=== PATIENT | female | born 1980 | race African-American/Black ===

== ENCOUNTER 2019-09-05 01:03 | Day surgery (SDC) | payer OTHER, SELFPAY ==
[2019-08-23 14:37] VITALS: BMI 38.0
--- NOTE | 2019-09-04 17:05 | PM.SD ---
Same Day Admit/Disch: HPI History of Present Illness Chief complaint: ventral hernia Narrative: Yuan Gatica is a 39 year old female who noticed a painful bulge in the upper mid abdomen. It has been there quite some time but at her initial office visit I was not really able to palpate this. She underwent abdominal ultrasound and a ventral hernia was seen. This is located about 7 cm cephalad of the umbilicus. At her return office visit in June, I was able to palpate the hernia. After discussion, she is taken to surgery now for ventral hernia repair possibly with mesh. [facility] Past Medical History Medical History Obesity Surgical History Surgical History Hx of removal of cyst left wrist Family History Family History Mother Hypertension Family history of malignant neoplasm of uterus Social History Social History Smoking status: Never smoker Second hand tobacco smoke exposure: No Alcohol intake: current Same Day Admit/Disch: Med Pre-admit Medications Home Medications Medication Instructions Recorded Confirmed Type norgestimate 0.25 mg-ethinyl 1 tablet PO DAILY 06/21/19 09/05/19 History estradiol 35 mcg tablet multivitamin 1 tablet PO DAILY 08/23/19 09/05/19 History hydrocodone-acetaminophen 1 - 2 tablet PO Q6H PRN #7 tablet 09/05/19 Rx ketorolac 10 mg PO Q6H 4 Days #16 tablet 09/05/19 Rx Exam Const: General: comfortable, no acute distress, alert and awake HENMT: Head: normocephalic and atraumatic Mouth: Yes Normal oral and palatal mucosa present Eyes: Conjunctivae: conjunctivae normal Pupils: Equal, round and reactive pupils present EOM: EOMs intact bilaterally Neck: Neck: normal visual inspection, no lymphadenopathy and nontender Resp: Effort & Inspection: normal respiratory effort Auscultation: clear to auscultation bilaterally Cardio: Rate: regular rate Rhythm: regular rhythm Heart sounds: no gallops, no murmurs and no rubs GI: Inspection: normal to inspection, non-distended and obesity GI Palp: Yes Soft to palpation, No Tenderness to palpation present (GI), No Hepatomegaly present, No Splenomegaly present and Yes Hernia present (Midline ventral hernia about 7 cm above umbilicus) Auscultation: normal bowel sounds Skin: Lesions: no lesions Rashes: no rashes Neuro: General: no focal motor deficits and CN's II-XI intact bilaterally Cranial nerves: Yes Equal, round and reactive pupils present, Yes Bilaterally intact EOM present, Yes facial symmetry and Yes Midline tongue present Speech: normal speech Motor exam (neuro): 5/5 motor strength present throughout and Motor abnormalities not present Extrem: General: no clubbing, cyanosis or edema and edema Psych: Affect: normal affect Thought process: Normal thought process present Insight: Good insight present (Psych) DS: Summary Time Spent with Patient Time attestation: Total time spent providing and/or coordinating discharge services: DS: Diagnosis Discharge Diagnosis (1) Ventral hernia without obstruction or gangrene: Code(s): K43.9 - Ventral hernia without obstruction or gangrene Status: Chronic Assessment and Plan: I have recommended we proceed with repair of this ventral hernia possibly with underlay mesh. The procedure the risks the benefits have been discussed. The usual time of recovery has been discussed. All questions were answered. The patient understands and wishes to proceed. Discharge Plan Discharge Patient Disposition: Home, Self-Care Discharge Instructions: 1. May shower the day after surgery over incision. 2. Call office for: -Wound increasingly painful or bleeding -Vomiting -Fever of greater than 101 degrees 3. Expect some blood on dressing or on skin.
[2019-09-05] MEDS: LACTATED RINGERS 1,000 ML 30 ML IV CONT ×2 (07:15→09:59)
[2019-09-05 07:18] VITALS: BP 125/84; PULSE 82; TEMP 36.6; O2SAT 99
--- NOTE | 2019-09-05 07:48 | WPDANESEPPF ---
Anes - Initial Pre Proc Eval Procedure: Operation Date: 09/05/19 08:30 Proposed Procedures p Ventral Hernia Repair, Possible Mesh - Peng Louis MD Date/Time: 09/05/19 07:48 Surgeon: Peng Louis MD Pre Op Diagnosis: ventral hernia Patient Data Age: 39 Gender: F Height: 1.52 m Weight: 88.2 kg Last Vital Signs Temp 36.6 C 09/05/19 07:18 Pulse 82 09/05/19 07:18 BP 125/84 09/05/19 07:18 Pulse Ox 99 09/05/19 07:18 Allergies Allergy/AdvReac Type Severity Reaction Status Date / Time No Known Allergies Allergy Verified 08/23/19 14:37 Home Medications Medication Instructions Recorded Confirmed Type norgestimate 0.25 mg-ethinyl 1 tablet PO DAILY 06/21/19 09/05/19 History estradiol 35 mcg tablet multivitamin 1 tablet PO DAILY 08/23/19 09/05/19 History Patient hx anesthesia problems: none Family hx anesthesia problems: none PMFSH Past Medical History Medical History Obesity Surgical History Surgical History Hx of removal of cyst left wrist Family History Family History Mother Hypertension Family history of malignant neoplasm of uterus Social History Social History Smoking status: Never smoker Second hand tobacco smoke exposure: No Alcohol intake: current Anes - Eval Final PreProcedure Day of Procedure 09/05/19 07:48 Patient weight: obese Heart: regular rate and rhythm Lungs: clear to auscultation and normal air movement Airway: Mallampati scale class II Neurological: alert and oriented Last oral intake: >/= 8 hours ASA classification: II Emergent: no Anesthetic plan: proceed Anesthesia type and monitoring: general GIVS and standard monitoring Informed Consent: The patient's anesthetic plan and its attendant risks and benefits were discussed with the patient/family/POA. Questions were solicited and answers provided to the satisfaction of the patient/family/POA.
[2019-09-05] MEDS: IBUPROFEN IV 800 MG/200 ML 800 MG/200 ML BAG 400 MG IVPB (08:27)
--- NOTE | 2019-09-05 08:52 | WPDHPUPDATE1 ---
History and Physical Update Update Date/Time: 09/05/19 08:52 History and Physical has been reviewed, including an updated exam of the patient. There are NO changes in the patient's condition. Risks, benefits, and alternatives have been discussed and questions answered. Patient agrees to proceed with procedure.
[2019-09-05] MEDS: ceFAZolin 2 GM/D5W 50 ML 2 GM/50 ML BAG IVPB (08:57)
[2019-09-05 10:00] VITALS: BP 111/68; PULSE 88; RESP 10; TEMP 36.9; O2SAT 93
--- NOTE | 2019-09-05 10:15 | P.OP_ITS ---
Procedure Note - Detailed Date of procedure: 09/05/19 Pre-op diagnosis: ventral hernia Primary ventral hernia Post-op diagnosis: same Procedure performed: Repair primary ventral hernia with 4.6 cm Parietex underlay mesh Description of procedure: Patient was taken to the operating room and IV sedation was administered. Prep and drape was carried out. The proposed incision had been marked over the hernia in the preoperative holding area. Local anesthetic was infiltrated into the skin and the deeper subcutaneous tissues in the area of the anticipated incision. Incision was made and dissection was carried down through the skin and to the hernia sac. The sac was then dissected free the surrounding subcutaneous tissues. It was dissected down to its neck. Additional local anesthetic was infiltrated into the neck and the fascia surrounding the neck of the hernia sac. The sac was then amputated at its neck. The subcutaneous was undermined around the hernia defect. Additional local was infiltrated around the fascia. The hernia defect was oriented transversely and was quite small. I could not place a finger within the hernia defect. I enlarged the defect slightly so that my finger could be placed within. I placed a finger inside the hernia defect and checked for any abdominal wall adhesions or other hernias in the area. None were found. A 4.6 cm Parietex muckleshoot was chosen. It was folded and placed in the defect. Once it symmetrically covered the defect, I placed cranial and caudal transfascial sutures of 0 Ethibond. These sutures were placed in such a fashion that, when tied, they would advance the edges of the hernia defect towards 1 another. These sutures were tied and had the desired effect. I then closed the hernia defect with [id number] mattress sutures of 0 Ethibond. The repair looked quite satisfactory. I then infiltrated additional local all around the areas of the repair. The subcutaneous was closed with 3 0 Vicryl. Subcuticular interrupted 4 O Vicryl skin stitches were placed. Wound was dressed with Exofin surgical adhesive. The patient was awakened and taken to recovery in good condition. Counts were correct x2. Implants: 4.6 cm Parietex hernia mesh Anesthesia: MAC and local (0.5% Marcaine with Exparel) Surgeon: Peng Louis MD Administrative Director: Diandra RAMSEY Estimated blood loss (mL): 5 Drains: No Packing: No Pathology: none sent Complications: None Condition: stable Disposition: same day Findings: 10 millimeter hernia defect
[2019-09-05 10:30] VITALS: BP 120/73; PULSE 82; RESP 16; O2SAT 96
[2019-09-05 10:55] VITALS: BP 134/87; PULSE 74; RESP 16
== END 2019-09-05 11:10 | disposition home or self-care (01) ==
PROVIDERS: PCP Family Medicine; Visit Provider Surgery
PROC: 0WQF0ZZ Repair Abdominal Wall, Open Approach (ICD-10-PCS; CPT 49560; principal; 2019-09-05 08:30)
DX: K43.9 Ventral hernia without obstruction or gangrene (principal); E66.9 Obesity, unspecified; Z68.38 Body mass index [BMI] 38.0-38.9, adult
CPT/HCPCS: 49560; 49568; C1781; C9290; J0690; J1100; J1741; J2250; J2405; J2704; J3010; J7120

== ENCOUNTER 2020-06-29 11:30 | Emergency (ER) | payer OTHER, SELFPAY ==
[2020-06-29 11:38] VITALS: BP 161/92; PULSE 86; RESP 16; TEMP 36.6; O2SAT 100
--- NOTE | 2020-06-29 11:43 | ED.EYEPROB ---
HPI - Eye Problem General Chief complaint: Skin/Abscess/Foreign Body Stated complaint: insect bite right eyelid Time Seen by Provider: 06/29/20 11:42 Source: patient and RN notes reviewed Mode of arrival: ambulatory Limitations: no limitations History of Present Illness HPI Narrative: 40-year-old female presents concern for a sore on her right upper eyelid. Reports history of oral herpes simplex, denies any history of breakouts on her eye. Reports she has been using Abreva on the sores. She reports right upper eyelid edema. She denies any vision changes, eye redness, drainage from the eye, eye pain. Reports small amount of drainage from the blister on her eyelid. MD chief complaint: other (Eyelid lesion) Related Data Home Medications Medication Instructions Recorded Confirmed norgestimate 0.25 mg-ethinyl 1 tablet PO DAILY 06/21/19 06/29/20 estradiol 35 mcg tablet multivitamin 1 tablet PO DAILY 08/23/19 06/29/20 Allergies Allergy/AdvReac Type Severity Reaction Status Date / Time No Known Allergies Allergy Verified 06/29/20 11:35 Review of Systems Review of Systems: Narrative: CONSTITUTIONAL: Denies malaise, chills, sweats, or fever. EYES: Denies visual changes, redness, or discharge. Reports right upper eyelid lesion with upper lid swelling ENT: Denies rhinorrhea, congestion, sinus pain, otalgia or sore throat. SKIN: Reports eyelid lesion, denies other rash or itching. MUSCULOSKELETAL: Denies myalgia. NEUROLOGIC: Denies headache. All systems reviewed & are unremarkable except as noted in HPI and below PMFSH Past Medical History Medical History (Updated 06/29/20 @ 11:51 by Melody Luo NP) Obesity Ventral hernia without obstruction or gangrene Surgically repaired 09/05/2019 Surgical History Surgical History (Updated 10/01/19 @ 09:34 by Joan Franco) Hx of removal of cyst left wrist S/P ventral herniorrhaphy Primary ventral hernia performed 09/05/2019 Family History Family History Mother Hypertension Family history of malignant neoplasm of uterus Social History Social History Smoking status: Never smoker Second hand tobacco smoke exposure: No Alcohol intake: current Comments At time of signature, agree with nursing past medical, surgical, social and family history. There is no relevant family history pertinent to the presenting complaint Exam Narrative: Exam Narrative: GENERAL: Well-appearing, well-nourished, and in no acute distress. HEAD: Normocephalic, atraumatic. EYES: PERRLA, conjunctivae clear, and EOMI. No nystagmus. Mild right upper eyelid edema, erythema with cluster of vesicles consistent with a simplex ENT: Nares clear. Mucous membranes moist. No oral lesions noted NECK: Supple. CHEST: No respiratory distress. Speaks in full sentences. HEART: Regular rate and rhythm. SKIN: Warm, dry, no other rash. NEURO: Alert and oriented x3. PSYCH: Normal mood and affect Course Course Emergency Course: Patient is aware of diagnosis, understands and agrees to treatment plan. Anticipatory guidance given. Patient agrees to follow-up as directed and is aware of reasons to seek care at the emergency department. Portions of this record may have been created with voice recognition software Vital Signs Vital signs: Vital Signs Temperature 97.9 F 06/29/20 11:38 Pulse Rate 86 06/29/20 11:38 Respiratory Rate 16 06/29/20 11:38 Blood Pressure 161/92 H 06/29/20 11:38 Pulse Oximetry 100 06/29/20 11:38 Temperature 97.9 F 06/29/20 11:38 Pulse Rate 86 06/29/20 11:38 Respiratory Rate 16 06/29/20 11:38 Blood Pressure 161/92 H 06/29/20 11:38 Pulse Oximetry 100 06/29/20 11:38 Reviewed. MDM - Eye Problem MDM Narrative Medical decision making narrative: Exam findings show no acute concerns or changes; patient is non-toxic appearing and is
== END 2020-06-29 11:55 | disposition home or self-care (01) ==
PROVIDERS: Emergency Provider Nurse Practitioner; PCP Family Medicine
DX: B00.1 Herpesviral vesicular dermatitis (principal); E66.9 Obesity, unspecified; Z68.41 Body mass index [BMI] 40.0-44.9, adult
CPT/HCPCS: 99213; G0463

== ENCOUNTER 2020-07-15 08:28 | Emergency (ER) | payer OTHER, SELFPAY ==
--- NOTE | 2020-07-15 08:40 | ED.GENADULT ---
HPI - General Adult General Chief complaint: Eye Problems Stated complaint: Swollen eye Time Seen by Provider: 07/15/20 08:40 Source: patient and RN notes reviewed Mode of arrival: ambulatory Limitations: no limitations History of Present Illness HPI narrative: 40-year-old -Italian female presents with complaints of itching, red, and swelling rash to right upper eyelid for the past 7 days. Yuan was treated here at the [facility] on 06/29/20 for RT upper eyelid complaint with 7 days of Valacyclovir, rash cleared up for 2 days and returned with increased symptoms, called PMD gave an additional Valacyclovir without relief, 2 days left. Symptoms increased over the past 48 hours with intermittent yellowish drainage, increase swelling and redness to upper eyelid. History of facial Herpetic lesions. Denies vision changes. Denies new changes in personal hygiene products or laundry detergent. No new foods or medications. No burning or bleeding. Denies headaches, weakness, fatigue, myalgia, facial swelling, or tongue swelling. Denies chest pain or dyspnea. LMP 07/10/20. Remains active. The patient reports she have not been diagnosed with COVID-19. The patient reports she is not waiting for the results of a COVID-19 lab test. The patient reports she do not have a new or worsening cough or shortness of breath. The patient reports she do not have any rhinorrhea, congestion, sore throat, loss of taste, nausea, vomiting, abdominal pain, and diarrhea. Tolerating po intake well. Denies recent traveling. Denies concerns for COVID-19 or exposures been home with limited outdoor exposure except for essential household needs, work, and return home. At this time, patient is not suspected of having COVID-19. Some parts of this dictation were generated by voice recognition software and may contain typographical and/or grammatical inaccuracies. Related Data Home Medications Medication Instructions Recorded Confirmed norgestimate 0.25 mg-ethinyl 1 tablet PO DAILY 06/21/19 06/29/20 estradiol 35 mcg tablet multivitamin 1 tablet PO DAILY 08/23/19 06/29/20 Allergies Allergy/AdvReac Type Severity Reaction Status Date / Time No Known Allergies Allergy Verified 07/15/20 08:36 Review of Systems Review of Systems: Narrative: CONSTITUTIONAL: Denies fever, chills, sweats. EYES: Denies visual changes, redness, discharge. ENT: Denies rhinorrhea, congestion, sore throat, otalgia. CARDIOVASCULAR: Denies chest pain, palpitations, edema. RESPIRATORY: Denies dyspnea, wheezing, cough. GASTROINTESTINAL: Denies abdominal pain, nausea, vomiting, diarrhea. SKIN: Complains of itching, red, swelling rash, and intermittent yellowish drainage to right upper eyelid. MUSCULOSKELETAL: Denies acute back pain, joint pain, or myalgia. NEUROLOGIC: Denies numbness or focal weakness. PSYCHIATRIC: Denies anxiety or depression. All other systems reviewed & are unremarkable except as noted in HPI and below. [facility] Past Medical History Medical History Obesity Ventral hernia without obstruction or gangrene Surgically repaired 09/05/2019 Surgical History Surgical History Hx of removal of cyst left wrist S/P ventral herniorrhaphy Primary ventral hernia performed 09/05/2019 Family History Family History Mother Hypertension Family history of malignant neoplasm of uterus Father Hypertension Social History Social History (Updated 07/15/20 @ 09:10 by KHADAR Jackson) Smoking status: Never smoker Tobacco type: cigarettes Second hand tobacco smoke exposure: No Alcohol intake: current Substance use: never Living arrangements: with family Occupation/Education: occupation Gender identity (if verbalized by the patient): Female Comments At time of signature, agree
[2020-07-15 08:42] VITALS: BP 148/93; PULSE 91; RESP 18; TEMP 36.4; O2SAT 100
[2020-07-15 09:05] VITALS: BP 150/90
== END 2020-07-15 09:08 | disposition home or self-care (01) ==
PROVIDERS: Emergency Provider Nurse Practitioner Family; PCP Family Medicine
DX: H00.031 Abscess of right upper eyelid (principal); L30.9 Dermatitis, unspecified; E66.9 Obesity, unspecified; Z68.39 Body mass index [BMI] 39.0-39.9, adult
CPT/HCPCS: 99213; G0463

== ENCOUNTER 2020-07-18 12:42 | Emergency (ER) | payer OTHER, SELFPAY ==
--- NOTE | ~2020-07-18 | CT_ITS ---
EXAMINATION: CT orbit BI w con DATE: 07/18/2020 15:48 INDICATION: Right periorbital edema and erythema. TECHNIQUE: Computed tomography (CT) of the orbits was performed with 75 mL Omnipaque 350 intravenous contrast. Automated exposure control and iterative reconstruction technique were employed. The dose-l ength product was 302.26 mGy-cm. COMPARISON: None. FINDINGS: There is right periorbital soft tissue swelling. No orbital involvement. There is rightward deviation of the nasal septum. The paranasal sinuses are clear. The mastoid air cells are normal. IMPRESSION: 1. Right periorbital soft tissue swelling. No orbital involvement. Reviewed, dictated and finalized at location B. RT PROGRAMMER
[2020-07-18 12:44] VITALS: BP 134/88; PULSE 96; RESP 20; TEMP 36.6; O2SAT 100
--- NOTE | 2020-07-18 14:08 | PC.NURSE ---
prop and scenery maker informed about no EDP signing up for patient yet. prop and scenery maker aware of situation.
[2020-07-18 14:48] LABS: Basophils Absolute Auto 0.1 K/mm3 (0.0-0.1); Basophils Percent Auto 0.8 % (0.2-1.2); Eosinophils Absolute Auto 0.4 K/mm3 (0-0.3); Eosinophils Percent Auto 3.2 % (0-4.4); Hemoglobin 12.6 g/dL (12.0-15.0); Immature Granulocyte Absolute 0.03 K/mm3 (0.00-0.031); Immature Granulocyte Percent A 0.3 % (0-0.5); Lymphocytes Absolute Auto 2.89 K/mm3 (0.9-3.2); Lymphocytes Percent Auto 25.9 % (18.3-44.2); Mean Corpuscular HGB Conc 34.1 g/dl (32-36); Mean Corpuscular Hemoglobin 28.6 pg (26-34); Mean Corpuscular Volume 83.9 fl (80-100); Mean Platelet Volume 10.3 fl (7.4-10.4); Monocytes Absolute Auto 0.8 K/mm3 (0.1-0.6); Monocytes Percent Auto 7.4 % (2.6-8.5); Neutrophils Percent Auto 62.4 % (45.5-73.1); Platelet Count Result 311 k/mm3 (150-375); Red Blood Count 4.41 M/mm3 (4.2-5.4); Red Cell Distribution Width 12.8 % (11.5-14.5); White Blood Count 11.2 K/mm3 (4.5-10.0)
[2020-07-18 15:00] LABS: Anion Gap 4 mmol/L (8-16); Blood Urea Nitrogen 11 mg/dL (7-17); Calcium 9.2 mg/dL (8.4-10.2); Carbon Dioxide 29 mmol/L (22-30); Chloride 106 mmol/L (98-107); Estimated CRCL calculation 61 ml/min; Estimated Glomerular Filt Rate > 60; Glucose 102 mg/dL (65-105); Potassium 4.2 mmol/L (3.4-5.0); Sodium 139 mmol/L (137-145)
[2020-07-18 15:03] LABS: CRP 1.3 mg/dL (<1.0)
--- NOTE | 2020-07-18 15:04 | ED.EYEPROB ---
HPI - Eye Problem General Chief complaint: Eye Problems Stated complaint: L eye infection Time Seen by Provider: 07/18/20 14:37 Source: patient Mode of arrival: ambulatory Limitations: no limitations History of Present Illness HPI Narrative: Patient presents the emergency department for right eye pain and swelling x3 days. Reports she was seen by an pick up truck driver yesterday for this and started on Augmentin and bacitracin ointment. Reports continued swelling and redness around the eye. Denies fever or vision changes. Related Data Home Medications Medication Instructions Recorded Confirmed norgestimate 0.25 mg-ethinyl 1 tablet PO DAILY 06/21/19 06/29/20 estradiol 35 mcg tablet multivitamin 1 tablet PO DAILY 08/23/19 06/29/20 Allergies Allergy/AdvReac Type Severity Reaction Status Date / Time No Known Allergies Allergy Verified 07/18/20 12:52 Review of Systems Review of Systems: Narrative: CONSTITUTIONAL: Denies fever EYES: Reports redness. Denies visual changes, or discharge. SKIN: Reports rash and itching. All systems reviewed & are unremarkable except as noted in HPI and below PMFSH Past Medical History Medical History Obesity Ventral hernia without obstruction or gangrene Surgically repaired 09/05/2019 Surgical History Surgical History Hx of removal of cyst left wrist S/P ventral herniorrhaphy Primary ventral hernia performed 09/05/2019 Family History Family History Mother Hypertension Family history of malignant neoplasm of uterus Father Hypertension Social History Social History (Updated 07/15/20 @ 09:10 by KHADAR Jackson) Smoking status: Never smoker Tobacco type: cigarettes Second hand tobacco smoke exposure: No Alcohol intake: current Substance use: never Gender identity (if verbalized by the patient): Female Exam Narrative: Exam Narrative: GENERAL: Well-appearing, well-nourished, and in no acute distress. HEAD: Normocephalic, atraumatic. EYES: PERRLA and EOMI. Right eye with mild conjunctival injection. No abnormal drainage. Moderate edema and erythema to the upper and lower eyelid on the right. Visual acuity 20/20 left, 20/25 right. There is one small vesicle on the right upper eyelid, otherwise no rashes noted NECK: Supple. No adenopathy or masses. No carotid bruits or JVD EXTREMITIES: Normal range of motion. No edema. SKIN: Warm, dry, no rash. NEURO: No focal deficits. Alert and oriented x3. PSYCH: Normal mood and affect Course Vital Signs Vital signs: Vital Signs Temperature 97.8 F 07/18/20 12:44 Pulse Rate 96 07/18/20 12:44 Respiratory Rate 20 07/18/20 12:44 Blood Pressure 134/88 07/18/20 12:44 Pulse Oximetry 100 07/18/20 12:44 Temperature 97.8 F 07/18/20 12:44 Pulse Rate 96 07/18/20 12:44 Respiratory Rate 20 07/18/20 12:44 Blood Pressure 134/88 07/18/20 12:44 Pulse Oximetry 100 07/18/20 12:44 MDM - Eye Problem MDM Narrative Medical decision making narrative: Patient presents to the ER for right sided cheng-orbital cellulitis. She is afebrile and nontoxic appearing. Visual acuity is normal. Was seen by her eye doctor yesterday and started on antibiotics, but wanted to be seen today for continued symptoms. CBC with mild leukocytosis to 11.2. No concerning elevation in inflammatory markers. CT scan of the orbit shows right periorbital soft tissue swelling, no orbital involvement. Patient was started on an oral antibiotic, but needs a higher dose and needs an additional antibiotic added. This will be adjusted. Patient was also instructed to take the antiviral that was prescribed in case this is shingles. She does have 1 small vesicle on the upper eyelid, otherwise there is no rashes noted. Patient is stable and felt appropr
[2020-07-18 15:15] LABS: Erythrocyte Sedimentation Rate 20 mm/hr (0-20)
[2020-07-18 15:44] VITALS: BP 130/69; PULSE 80; RESP 12; O2SAT 99
[2020-07-18 17:20] VITALS: BP 132/70; PULSE 64; RESP 14; O2SAT 99
== END 2020-07-18 17:20 | disposition home or self-care (01) ==
PROVIDERS: Physician Assistant; Emergency Provider Emergency Medicine; PCP Family Medicine
DX: L03.213 Periorbital cellulitis (principal); E66.9 Obesity, unspecified; Z68.39 Body mass index [BMI] 39.0-39.9, adult
CPT/HCPCS: 36415; 70481; 80048; 85025; 85652; 86140; 99284; Q9967

== ENCOUNTER 2022-02-11 11:34 | Outpatient (CLI) | payer OTHER, SELFPAY ==
--- NOTE | ~2022-02-11 | XR_ITS ---
XR knee RT min 4V 02/11/2022 12:00 Indication: Right knee pain Procedure: 4 views right knee Comparison: No prior studies for comparison. Findings: No fracture, subluxation or dislocation. No significant joint space narrowing. Moderate temitope nt effusion. No foreign bodies. Impression: 1: Moderate joint effusion. Reviewed, dictated and finalized at location B. Impression: 1: Moderate joint effusion.
== END 2022-02-11 11:35 | disposition home or self-care (01) ==
PROVIDERS: PCP Family Medicine; Visit Provider Nurse Practitioner
DX: M25.461 Effusion, right knee (principal)
CPT/HCPCS: 73564

== ENCOUNTER 2022-06-30 13:38 | Outpatient (CLI) | payer OTHER, SELFPAY ==
--- NOTE | ~2022-06-30 | MR_ITS ---
EXAMINATION: MR knee RT wo con DATE: 06/30/2022 14:21 INDICATION: Right knee pain and swelling, symptom of giving out since January 2022. No specific trauma history. TECHNIQUE: Magnetic resonance imaging (MRI) of the right knee was performed without intravenous contr ast. Sequences included axial PD-weighted FS FSE, coronal PD-weighted FSE and PD-weighted FS FSE, sag ittal PD-weighted FSE, and sagittal T2-weighted FS FSE. COMPARISON: X-ray right knee 02/11/2022. FINDINGS: Medial compartment: Vertically oriented tear in the posterior horn, medial meniscus. Moderate diffuse thinning of cartila ge. Mild osteophytosis. Lateral compartment: Intact meniscus. Moderate diffuse thinning of cartilage. Mild osteophytosis. Patellofemoral compartment: Intact cartilage and patellar retinacula. Ligaments and tendons: The ACL, PCL, MCL, and LCL are intact. The remaining flexor and extensor tendons are intact. Fluid: Small volume joint fluid. Osseous/other: No suspicious focal or diffuse marrow signal. IMPRESSION: 1. Small vertically oriented tear of the posterior horn, medial meniscus. 2. Mild tricompartmental osteoarthritic change. Reviewed, dictated and finalized at location K. EPOINT DESIGNER DEVELOPER
== END 2022-06-30 13:39 ==
LOC: GOSHIMG 13:39
PROVIDERS: PCP Nurse Practitioner; Visit Provider Nurse Practitioner
DX: M17.11 Unilateral primary osteoarthritis, right knee (principal); S83.241A Other tear of medial meniscus, current injury, right knee, initial encounter
CPT/HCPCS: 73721

== ENCOUNTER 2022-09-15 00:14 | Day surgery (SDC) | payer OTHER, SELFPAY ==
[2022-09-02 11:52] VITALS: BMI 40.0
--- NOTE | 2022-09-02 11:55 | PC.NURSE ---
Report to the Outpatient Waiting Room, entrance under the green pavilion located off [facility], at time 1130 on date 09/15/22. Planned Procedure Time: 1330. Time changes happen often and if your time is changed the preop area will call you the afternoon before. - You and your visitor will be asked to self-screen and do not enter if you have any COVID symptoms. - Only one visitor is requested with a max of two and NO children visitors are allowed at this time. - The patient visitor may be requested to leave or wait in car when not with patient due to distancing restrictions. - A mask is optional within the hospital at this time. Patients may have clear liquids (water, carbonated beverages, clear teas, apple juice) until 3 hours prior to surgery with a maximum of 20 ounces. - No food from midnight until time of surgery Take the following medications with a SIP of water the morning of surgery: N/A DO NOT STOP ANY OF YOUR OTHER PRESCRIPTION MEDICATIONS PRIOR TO SURGERY?EXCEPT THE FOLLOWING Medications to discontinue per physician: N/A Date to take last dose: N/A Please no make-up, nail [place] islander, hairspray, perfume, deodorant, or body powder the day of surgery. No jewelry (including any body piercings) or valuables the day of surgery, leave them at home. Please take a shower or bath the night before, or the morning of, surgery with an antibacterial soap. Wear comfortable, loose fitting clothing. - Jewelry must be removed prior to entering the operating room. Rings and piercings that are not removed may be cut off. - The hospital will not accept responsibility for valuables. - Please leave all valuables, including medications, at home the day of surgery. If you are going home after surgery, a licensed warehouse driver must drive you home. - NO public transportation without another adult if you receive anesthesia. - We recommend that an adult stay with you for 24 hours following discharge. - We also recommend that you do not drive, make important decision, drink alcoholic beverages, or take any drugs that were not prescribed by your health care provider for at least 24 hours after your discharge time. Follow any additional instructions given to you from your surgeon. If you or anyone in your household have experienced Covid symptoms in the past week, please notify your surgeon or the nurse liaison at the phone number below for possible testing. Telephone instructions given to PT - ROGELIO PEREZ and asked if any additional questions and then verbalized understanding. Patient advised to call surgeon office or pre surgery nurse liaison [phone] if any additional questions.
[2022-09-15] VITALS (8 sets, daily range): BP systolic 116–144; BP diastolic 75–97; PULSE 72–87; RESP 12–19; TEMP 36.7; O2SAT 99–100
--- NOTE | 2022-09-15 07:15 | WPDHPUPDATE1 ---
History and Physical Update Update Date/Time: 09/15/22 07:15 History and Physical has been reviewed, including an updated exam of the patient. There are NO changes in the patient's condition. Risks, benefits, and alternatives have been discussed and questions answered. Patient agrees to proceed with procedure.
[2022-09-15] MEDS: LACTATED RINGERS 1,000 ML 30 ML IV CONT ×2 (11:42→14:41)
[2022-09-15] MEDS: CELECOXIB 200 MG CAPSULE PO (11:48)
[2022-09-15] MEDS: ACETAMINOPHEN 500 MG TABLET 1000 MG PO (11:48)
--- NOTE | 2022-09-15 12:08 | SUR.PREOP ---
PT STATES SHE IS COMFORTABLE USING CRUTCHES, CRUTCH INSTRUCTIONS REVIEWED WITH PT. CRUTCHES OBTAINED AND ADJUSTED FOR PT.
--- NOTE | 2022-09-15 12:34 | WPDANESEPPF ---
Anes - Initial Pre Proc Eval Procedure: Operation Date: 09/15/22 13:30 Proposed Procedures p Right Knee Arthroscopy - Zi Skaggs MD Date/Time: 09/15/22 12:34 Surgeon: Zi Skaggs MD Pre Op Diagnosis: right knee medial meniscal tear Patient Data Age: 42 Gender: F Height: 1.52 m Weight: 95.6 kg Last Vital Signs Temp 98.0 F 09/15/22 10:50 Pulse 87 09/15/22 10:50 Resp 18 09/15/22 10:50 BP 135/89 09/15/22 10:50 Pulse Ox 99 09/15/22 10:50 O2 Del Method Room Air 09/15/22 10:50 Allergies Allergy/AdvReac Type Severity Reaction Status Date / Time No Known Allergies Allergy Verified 09/15/22 12:00 Home Medications Medication Instructions Recorded Confirmed Type norgestimate 0.25 mg-ethinyl 1 tablet PO HS 09/02/22 09/15/22 History estradiol 35 mcg tablet (Estarylla) Patient hx anesthesia problems: none Family hx anesthesia problems: none Results Review: All pre-operative results and documents have been reviewed as part of the pre-operative evaluation. [facility] Past Medical History Medical History Abnormal Pap smear of cervix 201107/08/21, HR HPV Obesity Vaginal delivery x2 Ventral hernia without obstruction or gangrene Surgically repaired 09/05/2019 Surgical History Surgical History History of colposcopy 2011 Hx of removal of cyst left wrist S/P ventral herniorrhaphy Primary ventral hernia performed 09/05/2019 [place] teeth extracted 2008 Family History Family History Mother Hypertension Cervical cancer Father Hypertension Social History Social History Smoking status: Never smoker Tobacco type: cigarettes Second hand tobacco smoke exposure: No Alcohol intake: never Alcohol use details: occasional Substance use: never Substance use type: does not use Lack of Transportation: No Lack of Food: Never True Current Housing: I Have Housing Concerned About Future Housing: No Difficulty Paying Gas/Electric Bills: No Difficulty Paying for Meds: No Currently Unemployed: No Education: Associate Degree Difficulty w/ Childcare or Family Care: No Living arrangements: with family Occupation/Education: occupation Gender identity (if verbalized by the patient): Female Spiritual care concerns: No Anes - Eval Final PreProcedure Day of Procedure 09/15/22 12:34 Patient weight: morbidly obese Heart: regular rate and rhythm Lungs: clear to auscultation Airway: Mallampati scale class II Neurological: alert and oriented Last oral intake: >/= 8 hours ASA classification: III Emergent: no Anesthetic plan: proceed Anesthesia type and monitoring: general LMA and standard monitoring Results Review: All pre-operative results and documents have been reviewed as part of the pre-operative evaluation. Informed Consent: The patient's anesthetic plan and its attendant risks and benefits were discussed with the patient/family/POA. Questions were solicited and answers provided to the satisfaction of the patient/family/POA.
[2022-09-15] MEDS: ceFAZolin 2 GM/D5W 50 ML 2 GM/50 ML BAG IVPB (13:41)
[2022-09-15] MEDS: BUPivacaine HCL 0.5% 10 ML AMP 30 ML INFILTRATE (14:06)
--- NOTE | 2022-09-15 14:42 | W.PM.PROC2 ---
Procedure Note - Detailed Date of Procedure 09/15/22 Pre-op Diagnosis right knee medial meniscal tear Post-op Diagnosis Same Procedure Performed RIGHT KNEE SCOPE Surgeon Zi Skaggs MD Anesthesia General Description of Procedure PATIENT WAS TAKEN TO THE OR. RIGHT LEG WAS PREPPED AND DRAPED STERILE. TROCARS WERE PLACED IN TO THE KNEE JOINT IN THE USUAL FASHION. CAMERA WAS INTRODUCED. THERE WAS CHONDROMALACIA TO THE PATELLA FEMORAL JOINT. THERE WAS A LOT OF SYNOVITIS IN ALL COMPARTMENTS. THE MEDIAL COMPARTMENT SHOWED CHONDROMALACIA TO THE MEDIAL FEMORAL CONDYLE. A SHAVER WAS USED TO PREFORM A CHONDROPLASTY. THERE WAS A RADIAL TEAR TO THE MEDIAL MENISCUS. THE TEAR WAS RESECTED WITH A BITER AND A SHAVER DOWN TO A SMOOTH BASE. THE ACL WAS INTACT. THE LATERAL MENISCUS WAS NOT TORN THE LATERAL COMPARTMENT HAD NO SIGNIFICANT CHONDROMALACIA AT THE LATERAL PLATEAU OR LATERAL FEMORAL CONDYLE. THE PATELLO FEMORAL JOINT UNDERWENT MINIMAL CHONDROPLASTY. SYNOVECTOMY WAS PREFORMED IN THE SUPERIOR MEDIAL COMPARTMENT. THE WOUNDS WERE APPROXIMATED WITH 4.0 NYLON. STERILE DRESSING WAS APPLIED. PATIENT WAS EXTUBATED. Estimated Blood Loss 5 Complications No immediate complications Condition Stable Disposition PACU
[2022-09-15] MEDS: fentaNYL CITRATE INJ (*CRX) 100 MCG/2 ML VIAL 25 MCG IV PUSH ×3 (14:50→15:15)
[2022-09-15] MEDS: oxyCODONE HCL (*CRX) 5 MG TAB IR PO (15:44)
== END 2022-09-15 16:37 | disposition home or self-care (01) ==
PROVIDERS: PCP Nurse Practitioner; Visit Provider Orthopaedic Surgery
PROC: (CPT 29870; principal; 2022-09-15 13:30)
DX: M23.331 Other meniscus derangements, other medial meniscus, right knee (principal); M22.41 Chondromalacia patellae, right knee; M65.861 Other synovitis and tenosynovitis, right lower leg; E66.01 Morbid (severe) obesity due to excess calories; Z68.41 Body mass index [BMI] 40.0-44.9, adult
CPT/HCPCS: 29881; A9270; J0690; J1100; J2250; J2405; J2704; J3010; J7120

== ENCOUNTER 2023-11-07 12:54 | Outpatient (CLI) | payer OTHER, SELFPAY ==
--- NOTE | ~2023-11-07 | MR_ITS ---
EXAMINATION: MR knee RT wo con DATE: 11/07/2023 13:44 INDICATION: Right knee pain TECHNIQUE: Magnetic resonance imaging (MRI) of the right knee was performed without intravenous contr ast. Sequences included coronal PD-weighted FSE, coronal PD-weighted FS FSE, sagittal T2-weighted FS E, sagittal PD-weighted FS FSE and axial PD weighted fat saturated FSE. COMPARISON: None. FINDINGS: Medial compartment: Medial meniscus is normal. Mild partial-thickness chondral ulceration along the anterior to central w eightbearing medial femoral condyle. Mild partial-thickness cartilage loss with relatively smooth cho ndral surface along the medial tibial plateau. No degenerative subchondral changes. Lateral compartment: Lateral meniscus is normal. Small region of partial-thickness chondral ulceration with mild chondral surface regularity at the anteromedial aspect of the anterior weightbearing lateral femoral condyle. Remaining cartilage is normal. Patellofemoral compartment: Small region of partial-thickness chondral fissuring without degenerative subchondral changes. Deep c hondral ulceration with underlying cortical irregularity and mild edema-like signal change at the inf erior aspect of the medial trochlea at the medial patellar facet. Ligaments and tendons: Anterior and posterior cruciate ligaments are normal. The medial collateral ligament and fibular jonn ateral ligament complex are normal. The extensor mechanism is normal. The visualized medial and later al hamstring tendons as well as the iliotibial band are normal. Fluid: Physiologic amount of fluid in the joint space. No loose osteochondral bodies identified. Osseous/other: No fracture or pathologic marrow replacing process. IMPRESSION: 1. Normal menisci and stabilizing ligaments of the knee. 2. Mild tricompartmental osteoarthritis with the most prominent in extensive partial thickness cartil age loss at the medial compartment but with small region of high-grade chondromalacia at the medial t rochlea. Reviewed, dictated and finalized at location B. IMPRESSION: 1. Normal menisci and stabilizing ligaments of the knee. 2. Mild tricompartmental osteoarthritis with the most prominent in extensive pa rtial thickness cartilage loss at the medial compartment but with small region of high-grade chondromalacia at the medial trochlea.
== END 2023-11-07 12:55 ==
PROVIDERS: PCP Family Medicine; Visit Provider Nurse Practitioner
DX: M17.11 Unilateral primary osteoarthritis, right knee (principal)
CPT/HCPCS: 73721

== ENCOUNTER 2024-01-07 09:18 | Outpatient (CLI) | payer OTHER, SELFPAY ==
--- NOTE | ~2024-01-07 | MM_ITS ---
EXAMINATION: MM screening dieter BI w gregory HISTORY: Screening TECHNIQUE: Craniocaudal and mediolateral oblique 3-D tomosynthesis images were obtained and synthetic 2-D images were generated. CAD analysis was submitted and interpreted. COMPARISON: No prior mammogram is available for comparison at this institution. BREAST PARENCHYMAL COMPOSITION: Not dense: There are scattered areas of fibroglandular density. FINDINGS: There are asymmetries in the lower inner quadrant of the right breast in the upper outer qu adrant of the left breast. There are no suspicious calcifications. IMPRESSION: 1. Bilateral breast asymmetries. 2. Additional mammographic views and possible breast ultrasound are recommended. BI-RADS Category 0: Incomplete: Needs additional imaging evaluation. Reviewed, dictated and finalized at location B. IMPRESSION: 1. Bilateral breast asymmetries. 2. Additional mammographic views and possible breast ultrasound are recommended . BI-RADS Category 0: Incomplete: Needs additional imaging evaluation.
== END 2024-01-07 09:19 | disposition home or self-care (01) ==
LOC: ANHIMG 09:20
PROVIDERS: PCP Family Medicine; Visit Provider Nurse Practitioner Family
DX: Z12.31 Encounter for screening mammogram for malignant neoplasm of breast (principal); R92.8 Other abnormal and inconclusive findings on diagnostic imaging of breast
CPT/HCPCS: 77063; 77067

== ENCOUNTER 2024-01-26 10:58 | Outpatient (CLI) | payer OTHER, SELFPAY ==
--- NOTE | ~2024-01-26 | MMUS_ITS ---
EXAMINATION: MM diagnostic dieter BI w gregory, US breast BI complete HISTORY: Follow-up bilateral breast asymmetries TECHNIQUE: Additional 3-D tomosynthesis images of the breasts were performed and synthetic 2-D images were generated. CAD analysis was submitted and interpreted. High resolution bilateral complete breas t ultrasound was performed. COMPARISON: Comparison to multiple prior studies sequentially, with oldest reviewed study dated 03/28/2021. BREAST PARENCHYMAL COMPOSITION: Not dense: There are scattered areas of fibroglandular density. FINDINGS: MAMMOGRAPHIC FINDINGS: Asymmetries in the lower central/lower inner aspect of the right breast may represent serpiginous ana maria ts or vascular structures, best seen on spot MLO views. No discrete mass identified in the left breas t to suggest malignancy. ULTRASOUND: Complete bilateral US of all 4 quadrants of the breasts and retroareolar region was reviewed. In the right breast at 4:00, 6 cm from the nipple there are serpiginous tubular structures corresponding to the areas of abnormality, most likely vascular structures or dilated ducts no discrete solid or cysti c mass identified in either breast.. IMPRESSION: 1. No evidence for malignancy in either breast. Benign findings. 2. Routine yearly screening mammogram and regular clinical breast examination are recommended. BI-RADS Category 2: Benign finding(s). Reviewed, dictated and finalized at location B. IMPRESSION: 1. No evidence for malignancy in either breast. Benign findings. 2. Routine yearly screening mammogram and regular clinical breast examination a re recommended. BI-RADS Category 2: Benign finding(s).
== END 2024-01-26 10:59 | disposition home or self-care (01) ==
LOC: ANHIMG 10:59
PROVIDERS: PCP Family Medicine; Visit Provider Nurse Practitioner Family
DX: R92.8 Other abnormal and inconclusive findings on diagnostic imaging of breast (principal); R92.30 Dense breasts, unspecified
CPT/HCPCS: 76641; 77062; 77066; G0279